=== PATIENT | male | born 1975 | race Two or more races ===

== ENCOUNTER 2022-08-20 18:38 | Emergency (ER) | payer OTHER ==
[2022-08-20 18:50] VITALS: RESP 18; TEMP 97; BMI 34.2
[2022-08-20] MEDS ORDERED: amLODIPine BESYLATE 5 MG TABLET (FP) PO ONE (22:59)
[2022-08-20] MEDS ORDERED: amLODIPine BESYLATE 5 MG TABLET (FP) ONE (23:03)
[2022-08-20 23:30] LABS: BLOOD UREA NITROGEN 12.5 mg/dL (7-18); CALCIUM 9.3 mg/dL (8.5-10.1)
[2022-08-20 23:33] LABS: CREATININE 1.2 mg/dL (0.55-1.3)
[2022-08-21 00:04] VITALS: BP 180/130; PULSE 96
== END 2022-08-21 00:27 | disposition home or self-care (01) ==
LOC: JER 18:38
DX: I10 Essential (primary) hypertension (principal)
CPT/HCPCS: 36415; 80048; 93005; 93010; 99284-25